=== PATIENT | female | born 1990 | race African-American/Black ===

== ENCOUNTER 2020-05-02 10:34 | Observation (INO) ==
[2020-05-02 12:05] LABS: Basophils % 0.2 % (0.0-0.8); Eosinophils % 0.3 % (0.00-10.9); Hematocrit 32.5 VOL% (35.7-47.0); Hemoglobin 11.5 GM/DL (12.0-16.0); Immature Granulocytes % 0.6 %; Immature Granulocytes Absolute 0.06 #; Lymphocytes # 1.2 10*3/uL (1.4-4.0); Lymphocytes % 11.5 % (21.3-54.2); Mean Corpuscular HGB Conc 35.4 GM/DL (32-36); Mean Corpuscular Volume 85.5 FL (87-102); Mean Platelet Volume 12.1 FL (9.6-12.0); Monocytes % 5.8 % (1.7-12.7); Neutrophils % 81.6 % (38.7-73.9); Platelet Count 116 T/CUMM (130-400); White Blood Count 10.7 T/CUMM (4-12)
[2020-05-02 12:15] LABS: Apearance,Urine CLOUDY (Clear); Bacteria,Urine Occasional /HPF (Few); Bilirubin,Urine Negative (Negative); Blood, Urine Negative (Negative); Glucose,Urine (UA) Negative (Negative); Ketones,Urine Negative (Negative); Mucus,Urine Occasional /LPF (Occasional); Nitrite,Urine Negative (Negative); Protein,Urine 30 MG/DL; RBC,Urine 5 /HPF (0-4); Squamous Epithelial Cell,Urine Many /HPF (0-10); Urine Color Yellow (Yellow); Urine Specific Gravity 1.009 (1.001-1.035); Urine Urobilinogen < 2.0 EU/DL (0.2-1.0); WBC,Urine 30 /HPF (0-6)
[2020-05-02 12:25] LABS: Alanine Aminotransferase < 6 U/L (13-56); Albumin 2.3 G/DL (3.4-5.0); Alkaline Phosphatase 100 U/L (45-117); Aspartate Amino Transferase 13 U/L (0-37); Blood Urea Nitrogen 5 MG/DL (7-18); Calcium 8.3 MG/DL (8.5-10.1); Estimated Glom Filtration Rate 236 ML/MIN; Glucose 76 MG/DL (74-106); Osmolality,Calculated 272.5 MOS/KG (273-304); Total Protein 6.4 G/DL (6.4-8.3)
[2020-05-02] MEDS ORDERED: ONDANSETRON 4 MG/2 ML VIAL IV PRN (15:28)
[2020-05-02] MEDS ORDERED: ACETAMINOPHEN/CODEINE 300-30 MG TABLET PO PRN (15:28)
[2020-05-02] MEDS: ACETAMINOPHEN/CODEINE 300-30 MG TABLET PO PRN (15:40)
[2020-05-02] MEDS: LABETALOL 100 MG TABLET PO SCH ×2 (15:40→20:10)
[2020-05-02] MEDS: MEPERIDINE 25 MG/1 ML VIAL IV PRN ×2 (18:05→22:11)
[2020-05-03] MEDS: LABETALOL 100 MG TABLET PO SCH (08:28)
[2020-05-03] MEDS: ACETAMINOPHEN/CODEINE 300-30 MG TABLET PO PRN (08:30)
[2020-05-03 13:13] VITALS: BP 142/78
== END 2020-05-03 12:35 | disposition home or self-care (01) ==
LOC: EDBD → EDUNIT# → N.EDINP 10:34 → N.ED 10:34 → N.LD 15:11 → N.OB 18:13
PROVIDERS: ADMIT Obstetrics & Gynecology; ATTEND Obstetrics & Gynecology